=== PATIENT | female | born 1985 | race Caucasian/White ===

== ENCOUNTER 2016-09-20 05:10 | Inpatient (IN) ==
[2016-09-20] MEDS ORDERED: KEFZOL 1 GM/D5W 50 ML IV PRN (05:13)
[2016-09-20] MEDS ORDERED: LR 1,000 ML IV SCH (05:15)
[2016-09-20] MEDS ORDERED: PEPCID IV ONE (05:15)
[2016-09-20] MEDS ORDERED: BICITRA PO ONE (05:15)
[2016-09-20] MEDS ORDERED: SODIUM CHLORIDE 0.9% INJ ONE (05:15)
[2016-09-20 06:13] LABS: MANUAL DIFF NEEDED? NO
[2016-09-20 06:13] LABS: URINE SOURCE VOIDED
[2016-09-20 06:19] LABS: BASO% 0.4 % (0.0-0.8); EOS% 1.7 % (0.0-10.0); HEMATOCRIT 34.5 % (37.0-47.0); HEMOGLOBIN 11.2 g/dL (12.0-16.0); IMM GRAN# 0.08 X1000 (0.0-0.04); IMM GRAN% 0.7 % (0.0-0.5); LYMPH# 1.51 X1000 (1.2-3.4); LYMPH% 12.6 % (20.5-51.1); MCH 29.2 PG (27-31); MCHC 32.5 g/dL (33-37); MCV 89.8 FL (81-99); MONO# 0.92 X1000 (0.11-0.59); MONO% 7.7 % (1.7-9.3); MPV 12.8 FL (7.4-10.4); NEUT% 76.9 % (42.2-75.2); PLT 186 X1000 (130-400); RBC 3.84 XMIL (4.2-5.4)
[2016-09-20 06:23] LABS: UR AMPHETAMINES QUAL NONE DETECTED (NONE DETECT); UR BARBITUATES QUAL NONE DETECTED (NONE DETECT); UR BENZODIAZEPIN QUAL NONE DETECTED (NONE DETECT); UR CANNABINOIDS QUAL NONE DETECTED (NONE DETECT); UR COCAINE QUAL NONE DETECTED (NONE DETECT); UR MDMA QUAL NONE DETECTED (NONE DETECT); UR METHADONE QUAL NONE DETECTED (NONE DETECT); UR METHAMPHETAMINE QUAL NONE DETECTED (NONE DETECT); UR OPIATES QUAL NONE DETECTED (NONE DETECT); UR OXYCODONE QUAL NONE DETECTED (NONE DETECT); UR PCP QUAL NONE DETECTED (NONE DETECT); UR TCA QUAL NONE DETECTED (NONE DETECT)
[2016-09-20] MEDS ORDERED: TORADOL ONE (06:24)
[2016-09-20] MEDS ORDERED: BENADRYL ONE (06:24)
[2016-09-20] MEDS ORDERED: FENTANYL ONE (06:25)
[2016-09-20] MEDS ORDERED: PITOCIN ONE (06:25)
[2016-09-20] MEDS ORDERED: DURAMORPH ONE (06:25)
[2016-09-20] MEDS ORDERED: NEO-SYNEPHRINE ONE (06:25)
[2016-09-20] MEDS ORDERED: HEMABATE ONE (06:26)
[2016-09-20] MEDS ORDERED: METHERGINE ONE (06:26)
[2016-09-20 06:36] LABS: BILIRUBIN URINE NEGATIVE (NEGATIVE); BLOOD URINE TRACE (NEGATIVE); CLARITY SL. CLOUDY (CLEAR); COLOR YELLOW; GLUCOSE URINE NEGATIVE (NEGATIVE); LEUKOCYTES URINE 1+ (NEGATIVE); NITRITE URINE NEGATIVE (NEGATIVE); PROTEIN URINE 1+(30 mg/dL) mg/dL (NEGATIVE); SP GRAVITY URINE 1.015; UROBILINOGEN URINE 4+(12 mg/dL)
--- NOTE | 2016-09-20 07:31 | HISTORY AND PHYSICAL ---
CHIEF COMPLAINT: History of section. Desire for repeat. HISTORY OF PRESENT ILLNESS: This is a 30-year-old, G4, P3-0-0-3, with intrauterine at 39+ 0 weeks by a 19+ 1 week ultrasound, EDC 09/27/2016, who presents to [facility] for scheduled repeat low transverse section. Patient's care has been relatively uncomplicated this and the patient did admit initially using marijuana at 16+ 5 weeks. A 36 week ultrasound, which showed placed at 6 pounds, 0 ounces with, which was at 48.5 percentile, vertex, with an anterior placenta. The patient denies headaches, vision changes, chest pain, shortness of breath, no nausea, vomiting, or change in bowel or bladder habits. OBSTETRICAL HISTORY: G1 full-term primary section secondary to failure to progress. G2 repeat section. G3 repeat section. CUT OUT MARKER HISTORY: Denies sexually transmitted infections or abnormal Pap. PAST MEDICAL HISTORY: Morbid obesity. SURGICAL HISTORY: Significant for cholecystectomy, as well as section x3. MEDICATION: vitamins. ALLERGIES: No known drug allergies. SOCIAL: 1/2 pack per day smoker. FAMILY HISTORY: Significant for diabetes, hypertension, and heart disease. REVIEW OF SYSTEMS: Negative. PHYSICAL EXAMINATION: GENERAL APPEARANCE: Well-developed, well-nourished white female in no acute distress. HEENT: Pupils equally round and reactive to light. Extraocular muscle intact. CHEST: Clear to auscultation bilaterally. CARDIOVASCULAR: Regular rate and rhythm. No murmurs, rubs, or gallops. ABDOMEN: Soft, nontender, gravid. EXTREMITIES: No clubbing, cyanosis, or edema. NEURO: No focal deficits. SKIN: Several small, blister-like healing lesions on the abdomen. ASSESSMENT AND PLAN: 1. Intrauterine at 39+ 0 weeks. 2. History of section x3. 3. Undesired fertility. 4. Morbid obesity. 5. Smoker. PLAN: To perform a repeat low-transverse section with bilateral tubal ligation. Patient counseled regarding the risks and benefits of section, including risks of bleeding, infection, injury to bowel and bladder, the risk of potential tubal sterilization failure being 1:300 was discussed and the patient agrees. Will proceed for low transverse section.
[2016-09-20] MEDS ORDERED: PERCOCET-5 PO PRN (08:16)
[2016-09-20] MEDS ORDERED: DEMEROL PO PRN ×2 (08:16)
[2016-09-20] MEDS ORDERED: AMBIEN PO PRN (08:16)
[2016-09-20] MEDS ORDERED: DEMEROL IM PRN (08:16)
[2016-09-20] MEDS ORDERED: BOOSTRIX VACCINE IM ONE (08:16)
[2016-09-20] MEDS ORDERED: PITOCIN IM PRN (08:16)
[2016-09-20] MEDS ORDERED: PITOCIN 20 UNITS/LR 1,000 ML IV ONE (08:16)
[2016-09-20] MEDS ORDERED: DULCOLAX PR PRN (08:16)
[2016-09-20] MEDS ORDERED: HYDROXYZINE IM PRN (08:16)
[2016-09-20] MEDS ORDERED: M-M-R II VACCINE SUBQ ONE (08:16)
[2016-09-20] MEDS ORDERED: PHENERGAN IM PRN (08:16)
[2016-09-20] MEDS ORDERED: CYTOTEC PO PRN (08:16)
[2016-09-20] MEDS ORDERED: MYLICON PO PRN (08:16)
--- NOTE | 2016-09-20 08:49 | OPERATIVE NOTE ---
PROCEDURE DATE: 09/20/2016 PREOPERATIVE DIAGNOSES: 1. Intrauterine at 39+ 0 weeks. 2. History of section x3. 3. Undesired fertility. 4. Morbid obesity. 5. Smoker. POSTOPERATIVE DIAGNOSES: 1. Intrauterine at 39+ 0 weeks. 2. History of section x3. 3. Undesired fertility. 4. Morbid obesity. 5. Smoker. SURGEON: Cristiano Townsend MD. SPORTS JOURNALIST: Norris Gilbert MD. ANESTHESIA: Gustavo Varghese MD. PROCEDURE: 1. Repeat low transverse section. 2. [place] bilateral tubal ligation. FINDINGS: Normal uterus, ovaries, and bilateral fallopian tubes. COMPLICATIONS: None apparent. ESTIMATED BLOOD LOSS: 700 mL. SPECIMENS REMOVED: Placenta, cord blood. OPERATIVE COURSE: The patient was identified and consents were reviewed. Spinal anesthesia was administered without complications. The patient was placed on the operative table in the dorsal supine position with a leftward tilt. Abdomen was prepped and draped in normal sterile fashion. A Pfannenstiel skin incision was made and carried through to the underlying layer of fascia. This was extended laterally with Melendrez scissors. The superior aspect of the fascial incision was grasped with Mike clamps, elevated, and underlying rectus muscles were dissected off with Melendrez scissors. Inferior portion performed in a similar manner. Rectus muscles were then identified and in the midline. The peritoneum was identified and entered bluntly. The bladder blade was then inserted. The bladder flap was then created using Metzenbaum scissors, secondary to upper traction of the bladder from previous section. Low transverse hysterotomy was made. Membranes were ruptured. Clear fluid noted. was found to be in the cephalic presentation. Infant delivered atraumatically. Nose and mouth were bulb suctioned. Cord was clamped and cut. The infant was handed off to the waiting nursing staff. Cord blood was then obtained. Placenta was then manually extracted. The uterus was exteriorized and cleaned of all clots and debris. The hysterotomy was repaired with 2 layers using 0 chromic. Bilateral fallopian tubes were then identified at the fimbriated end and grasped with Felisa clamps. A [place] tubal ligation was then performed. Bilateral fallopian tubes sent to pathology. The uterus was then returned to the intraperitoneal space. Adequate hemostasis noted at the hysterotomy site. The peritoneum was reapproximated using 0 chromic, the fascia was then reapproximated using 0 Vicryl. Subcutaneous tissues closed with plain gut suture. Skin was closed with 4-0 Biosyn in a running fashion as well as Dermabond. Patient tolerated the procedure well. She was taken to the recovery room afterwards in stable condition. [facility]
[2016-09-20] MEDS ORDERED: ZOFRAN ODT ONE (10:29)
[2016-09-20] MEDS ORDERED: ZOFRAN IV PRN ×2 (10:46)
[2016-09-20] MEDS ORDERED: NARCAN INJ PRN (10:46)
[2016-09-20] MEDS ORDERED: BENADRYL IV PRN (10:46)
[2016-09-20] MEDS ORDERED: ZOFRAN ODT PO PRN (10:46)
[2016-09-20] MEDS ORDERED: DIPRIVAN 1% ONE (10:51)
[2016-09-20] MEDS ORDERED: QUELICIN ONE (10:51)
[2016-09-20] MEDS ORDERED: EPHEDRINE ONE (10:51)
[2016-09-20] MEDS: TORADOL IV SCH ×2 (14:24→20:07)
[2016-09-20] MEDS: MYLICON PO SCH ×3 (14:28→20:06)
[2016-09-20] MEDS: PITOCIN 10 UNITS/LR 1,000 ML IV SCH ×2 (15:31→22:56)
[2016-09-20] MEDS: PERICOLACE PO SCH (20:06)
[2016-09-21 07:04] LABS: HEMATOCRIT 30.1 % (37.0-47.0); HEMOGLOBIN 9.6 g/dL (12.0-16.0); MCH 30.1 PG (27-31); MCHC 31.9 g/dL (33-37); MCV 94.4 FL (81-99); RBC 3.19 XMIL (4.2-5.4)
[2016-09-21] MEDS: PERCOCET-10 PO PRN ×5 (07:28→22:34)
[2016-09-21] MEDS ORDERED: LR 1,000 ML IV SCH (08:17)
[2016-09-21] MEDS: MYLICON PO SCH ×5 (08:31→19:31)
[2016-09-21] MEDS: PERICOLACE PO SCH ×2 (19:31→20:30)
[2016-09-21] MEDS: HYDROXYZINE PO PRN (22:28)
[2016-09-22] MEDS: MYLICON PO SCH ×2 (00:57→08:20)
[2016-09-22] MEDS: PERCOCET-10 PO PRN ×2 (04:01→06:55)
[2016-09-22] MEDS: HYDROXYZINE PO PRN (06:54)
[2016-09-22 07:35] VITALS: BP 139/82
--- NOTE | 2016-09-22 11:22 | DISCHARGE SUMMARY ---
ADMISSION DATE: 09/20/2016 DISCHARGE DATE: 09/22/2016 DATE OF : 1985. PRINCIPAL DIAGNOSIS: Intrauterine . SECONDARY DIAGNOSIS: History of section x3 with desire for repeat, undesired fertility. PRINCIPLE PROCEDURE: Repeat low transverse section with bilateral tubal ligation. HOSPITAL COURSE: Patient was admitted on 09/09/2016 for a scheduled repeat low transverse section. Procedure was performed without complications. Patient was subsequently transferred to mother/baby once deemed stable. Her postoperative course remained uneventful. The patient is ambulating without assistance. Her pain is well controlled with p.o. pain medications. The patient is tolerating a regular diet without nausea or vomiting and her lochia is less than menses. CONDITION ON DISCHARGE: Stable. ELIMINATION CAPACITY: Independent. FEEDING CAPACITY: Independent. LOCOMOTION CAPACITY: Independent. REHABILITATION POTENTIAL: Good. PROGNOSIS: Good. DISCHARGE MEDICATIONS: Include Percocet 5/325, 1-2 tabs p.o. every 6 hours p.r.n. pain. DIET: The patient to maintain a regular diet. PHYSICAL ACTIVITY: As tolerated. DISCHARGE INSTRUCTIONS: 1. The patient is ordered to call or return if fever greater than 100.4, heavy vaginal bleeding, foul smelling vaginal discharge, or any other acute changes. 2. She is to maintain pelvic rest x6 weeks. FOLLOWUP CARE: Patient to be discharged home with orders to follow up with Dr. Townsend in 2 weeks for an incision check.
== END 2016-09-22 12:05 | disposition home or self-care (01) | DRG 766 ==
LOC: P.LD 05:10 → P.WC 08:50
PROVIDERS: ADMIT Obstetrics & Gynecology; ATTEND Obstetrics & Gynecology
PROC: 10D00Z1 Extraction of Products of Conception, Low, Open Approach (ICD-10-PCS; principal; 2016-09-20 07:00)
PROC: 0UB70ZZ Excision of Bilateral Fallopian Tubes, Open Approach (ICD-10-PCS; 2016-09-20 07:00)
DX: O34.211 Maternal care for low transverse scar from previous cesarean delivery (principal); E66.01 Morbid (severe) obesity due to excess calories; Z37.0 Single live birth; O99.214 Obesity complicating childbirth; Z3A.39 39 weeks gestation of pregnancy; Z83.3 Family history of diabetes mellitus; Z82.49 Family history of ischemic heart disease and other diseases of the circulatory system; O99.334 Smoking (tobacco) complicating childbirth; F17.210 Nicotine dependence, cigarettes, uncomplicated; Z30.2 Encounter for sterilization
CPT/HCPCS: 59025; 80305; 81003; 85025; 85027; 86592; 86850; 86900; 86901; 94799; J0330; J0690; J1200; J1885; J2210; J2274; J2370; J2405; J2590; J3010; J7120; S0028